=== PATIENT | male | born 1960 | race Caucasian/White ===

== ENCOUNTER 2017-10-18 06:24 | Day surgery (SDC) | payer OTHER ==
[2017-10-18] VITALS (13 sets, daily range): BP systolic 112–140; BP diastolic 74–87; PULSE 60–78; RESP 13–22; Ht 185.4 cm; Wt 98.9 kg
[~2017-10-18] VITALS: Ht 185.4 cm; Wt 98.9 kg
[2017-10-18] MEDS ORDERED: POLYMYXIN/BACITRACIN 1L IRRIG ONE (06:48)
[2017-10-18] MEDS ORDERED: METF500T4 PO (07:04)
[2017-10-18] MEDS ORDERED: LEVO175T6 PO (07:04)
[2017-10-18] MEDS ORDERED: BUPIVACAINE 0.25% (MPF) 30 ML INJ ONE (07:21)
--- NOTE | 2017-10-18 07:27 | HPN ---
Date/Time of Note Date/Time of Note DATE: 10/18/17 TIME: 07:26 Interval H&P Admission Note Pt. seen H&P reviewed: No system changes FELICIA MEDRANO MD Oct 18, 2017 07:27
[2017-10-18] MEDS ORDERED: MIDAZOLAM 1 MG/ML 2 ML INJ ONE (07:33)
[2017-10-18] MEDS ORDERED: FENTAnyl 50 MCG/ML VIAL ONE (07:34)
[2017-10-18] MEDS ORDERED: PROPOFOL 20 ML ONE (07:55)
[2017-10-18] MEDS ORDERED: FAMOTIDINE 20 MG INJ ONE (07:55)
[2017-10-18] MEDS ORDERED: LIDOCAINE 2% (SDV) 5 ML INJ ONE (07:55)
[2017-10-18] MEDS ORDERED: ONDANSETRON 4 MG INJ ONE (07:55)
[2017-10-18] MEDS ORDERED: ROCURONIUM 50 MG INJ ONE (07:55)
[2017-10-18] MEDS ORDERED: SUCCINYLCHOLINE CHLORIDE 100 MG/5 ML SYG IV ONE (07:55)
[2017-10-18] MEDS ORDERED: NEOSTIGMINE 3 MG/3 ML SYRINGE ONE ×2 (08:20→08:21)
[2017-10-18] MEDS ORDERED: GLYCOPYRROLATE 0.4 MG INJ ONE (08:20)
[2017-10-18] MEDS ORDERED: KETOROLAC 30 MG INJ ONE (08:26)
[2017-10-18] MEDS ORDERED: BUPIVACAINE 0.25% (MPF) 30 ML INJ INJ ONE (08:29)
--- NOTE | 2017-10-18 08:34 | OPR ---
Date/Time of Note Date/Time of Note DATE: 10/18/17 TIME: 08:29 Operative Report Procedure Date: Oct 18, 2017 Preoperative Diagnosis Left inguinal hernia without obstruction Postoperative Diagnosis Left inguinal hernia (direct) Operation/Procedure Performed 1. Repair left inguinal hernia with extra large plug 2. Left ilioinguinal nerve block Surgeon Felicia Medrano MD Deputy County Attorney None Anesthesia Type: general Anesthesiologist: CAYDEN STOUT MD Estimated Blood Loss: 0 - 10 ml's Transfusion none Specimen None Grafts/Implants none Tubes/Drains None Complications none Pt Condition Post Procedure: stable Disposition: PACU Indications Symptomatic Procedure Description After satisfactory general anesthesia was achieved, the lower abdomen was prepped and draped in the usual fashion. A 4 cm transverse suprapubic left groin incision was made and carried down to the level of the aponeurosis. This was opened in the direction of its fibers, opening the external ring. The cord and nerve were retracted and preserved. There was a large direct sac. This was dissected circumferentially and reduced. The reduction was maintained by placement of an extra-large plug secured circumferentially to surrounding tissues with interrupted 3-0 Vicryl. Next, the flat portion of the mesh was cut and fashioned to fit in the floor of the canal as an overlay. It was anchored at the pubic tubercle with 2-0 Novafil, laterally to inguinal ligament with interrupted 2-0 Novafil, and medially to conjoined tendon with interrupted 2-0 Novafil. The mesh distal to the cord was reconstituted with a single suture of 2-0 Novafil creating a new internal ring of appropriate size. The cord and nerve were then replaced beneath the external oblique which was closed with a running 3-0 Vicryl suture. Esequiel's fascia was closed with interrupted 3 -0 Vicryl suture. Next a left inguinal nerve block was performed. 10 cc of 0.25% plain Marcaine were injected into the fascia 1 cm medial and inferior to the left anterior iliac spine. 10 more cc of the local anesthetic were injected directly into the subcutaneous tissues and skin. The skin was closed with subcuticular absorbable riccardo. Sponge and needle counts were reported as correct 2. FELICIA MEDRANO MD Oct 18, 2017 08:34
[2017-10-18] MEDS ORDERED: HYDROmorphONE (0.2 MG/ML) 10ML SYG IV PRN ×3 (09:00)
[2017-10-18] MEDS ORDERED: PROCHLORPERAZINE 10 MG INJ IV PRN (09:00)
[2017-10-18] MEDS ORDERED: MEPERIDINE 25 MG INJ IV PRN (09:00)
[2017-10-18] MEDS ORDERED: FENTAnyl 50 MCG/ML VIAL IV PRN ×3 (09:00)
[2017-10-18] MEDS ORDERED: DIPHENHYDRAMINE 50 MG INJ IV PRN (09:00)
[2017-10-18] MEDS ORDERED: ONDANSETRON 4 MG INJ IV PRN ×2 (09:00)
[2017-10-18] MEDS ORDERED: OXYCODONE/ACETAMINOPHEN (5/325) TAB PO PRN ×3 (09:00)
[2017-10-18] MEDS ORDERED: morphine 2 MG INJ IV PRN (09:00)
== END 2017-10-18 10:30 | disposition home or self-care (01) ==
LOC: SDS 06:24
PROVIDERS: ATTEND Surgery
DX: K40.90 Unilateral inguinal hernia, without obstruction or gangrene, not specified as recurrent (principal); E11.9 Type 2 diabetes mellitus without complications; Z79.84 Long term (current) use of oral hypoglycemic drugs; Z85.9 Personal history of malignant neoplasm, unspecified
CPT/HCPCS: 49505; 82962; C1781; J1885; J2250; J2405; J2710; J3010; Z7512; Z7610